=== PATIENT | male | born 1960 | race Caucasian/White ===

== ENCOUNTER 2017-04-14 15:57 | Emergency (ER) | payer MEDICAID ==
[~2017-04-14] VITALS: Ht 170.2 cm; Wt 84.1 kg
[2017-04-14] MEDS ORDERED: ondansetron 4mg rapidly disintigrating tab PO ONE (16:35)
[2017-04-14] MEDS ORDERED: HYDROmorphone 1 mg/ml syringe IM ONE (16:35)
[2017-04-14 17:00] VITALS: BP 116/80
== END 2017-04-14 17:01 | disposition home or self-care (01) ==
LOC: ER 15:58
DX: M54.5 Low back pain (principal); M79.605 Pain in left leg
CPT/HCPCS: 96372; 99283; J1170